=== PATIENT | female | born 1940 | race Caucasian/White ===

== ENCOUNTER 2016-10-03 10:08 | Day surgery (SDC) | payer MEDICARE, OTHER ==
[~2016-10-03] VITALS: Ht 167.6 cm; Wt 71.4 kg
[~2016-10-03 10:08] MED LIST: NO HOME MEDICATIONS
[2016-10-03] MEDS ORDERED: MULTIPLE VITAMI1 CAP PO (10:31)
[2016-10-03 10:47] VITALS: BP 108/64; PULSE 66; TEMP 98.3
[2016-10-03 13:15] VITALS: BP 115/58; PULSE 70; TEMP 97.5
[2016-10-03 13:30] VITALS: BP 105/54; PULSE 62
[2016-10-03 13:45] VITALS: BP 110/67; PULSE 59
[2016-10-03 14:00] VITALS: BP 109/50; PULSE 54
== END 2016-10-03 14:15 | disposition home or self-care (01) ==
LOC: SDCO 10:08
DX: Z12.11 Encounter for screening for malignant neoplasm of colon (principal); K57.30 Diverticulosis of large intestine without perforation or abscess without bleeding
CPT/HCPCS: J2250; J2405; J3010; J7030

== ENCOUNTER → 2016-11-04 | Outpatient (CLI) | payer MEDICARE, OTHER ==
[~2016-11-04] MED LIST changes: +MULTIPLE VITAMI1 CAP PO
== END ==
LOC: MC.RAD 11:40
DX: Z12.31 Encounter for screening mammogram for malignant neoplasm of breast (principal)

== ENCOUNTER → 2019-11-15 | Outpatient (CLI) | payer MEDICARE, OTHER | LOC: ZCOL.LAB 20:02 | DX: Z20.828 Contact with and (suspected) exposure to other viral communicable diseases (principal) ==